=== PATIENT | male | born 1955 | race Caucasian/White ===

== ENCOUNTER 2023-02-12 08:01 | Outpatient (RCR) | payer MEDICARE, MEDICAID, SELFPAY | END 2023-06-27 14:38 | disposition home or self-care (01) | LOC: HO.WCC 08:01 | PROVIDERS: PCP Internal Medicine; Visit Provider Physician Assistant | DX: L97.512 Non-pressure chronic ulcer of other part of right foot with fat layer exposed (principal); G99.0 Autonomic neuropathy in diseases classified elsewhere; J84.112 Idiopathic pulmonary fibrosis; Z79.899 Other long term (current) drug therapy | CPT/HCPCS: 11042; 15275; 97597; 99212; Q4187 ==

== ENCOUNTER 2023-09-28 11:42 | Outpatient (RCR) | payer MEDICARE, MEDICAID, SELFPAY | END 2024-01-15 10:00 | disposition home or self-care (01) | LOC: HO.WCC 11:42 | PROVIDERS: PCP Internal Medicine; Visit Provider Physician Assistant | DX: L97.512 Non-pressure chronic ulcer of other part of right foot with fat layer exposed (principal); J84.112 Idiopathic pulmonary fibrosis; G99.0 Autonomic neuropathy in diseases classified elsewhere; L84 Corns and callosities; R09.02 Hypoxemia; Z79.899 Other long term (current) drug therapy | CPT/HCPCS: 11042; 15275; 99212; Q4187 ==